=== PATIENT | male | born 1960 | race Caucasian/White ===

== ENCOUNTER 2022-05-01 17:04 | Emergency (ER) | payer MEDICARE, MEDICAID ==
[2022-05-01 19:13] LABS: ESTIMATED GFR 45 mL/min (>60)
== END 2022-05-01 20:30 | disposition home or self-care (01) ==
LOC: JD.ED 17:04
DX: R53.1 Weakness (principal); I10 Essential (primary) hypertension
CPT/HCPCS: 36415; 70450; 70450-26; 73502-26-RT; 73502-RT; 80053; 83605; 85025; 99285

== ENCOUNTER 2024-05-23 19:30 | Inpatient (IN) | payer MEDICARE, MEDICAID ==
[2024-05-23] MEDS ORDERED: Sodium Chloride 0.9% 10 ML Syringe FLUSH PRN (19:51)
[2024-05-23 20:37] LABS: BASOPHILS PERCENT AUTO 0.2 % (0.0-1.0); EOSINOPHILS PERCENT AUTO 0.1 % (0.0-6.0); HEMATOCRIT 34.7 % (42.0-52.0); HEMOGLOBIN 11.7 gm/dl (14.0-18.0); IMMATURE GRAN ABSOLUTE AUTO 0.07 K/mm3 (0.00-0.05); IMMATURE GRAN PERCENT AUTO 0.7 % (0.0-0.4); LYMPHOCYTES ABSOLUTE AUTO 1.3 K/mm3 (1.0-4.8); LYMPHOCYTES PERCENT AUTO 12.6 % (24.0-44.0); MEAN CORPUSCULAR HEMOGLOBIN 30.7 pg (28.0-32.0); MEAN CORPUSCULAR HGB CONC 33.7 g/dl (32.0-36.0); MEAN CORPUSCULAR VOLUME 91.1 fl (83.0-99.0); MEAN PLATELET VOLUME 9.3 fl (9.4-12.4); NEUTROPHILS ABSOLUTE AUTO 7.8 K/mm3 (1.8-7.7); NEUTROPHILS PERCENT AUTO 76.4 % (41.0-71.0); PLATELET COUNT,PLT 211 K/mm3 (150-400); RED BLOOD CELL COUNT 3.81 M/mm3 (4.52-5.90); WHITE BLOOD CELL COUNT,WBC 10.26 K/mm3 (3.9-11.3)
[2024-05-23 20:51] LABS: INR 1.17; PROTHROMBIN TIME 12.3 SECONDS (9.7-12.0)
[2024-05-23 20:52] LABS: PTT,PARTIAL THROMBOPLSTIN TIME 30.2 SECONDS (21.7-31.4)
[2024-05-23 20:57] LABS: LACTIC ACID 1.7 mmol/L (0.4-2.0)
[2024-05-23 21:04] LABS: A/G RATIO 0.8 (1-2); ALANINE AMINOTRANSFERASE,ALT 16 U/L (16-63); ALBUMIN 3.2 g/dl (3.4-5.0); ALKALINE PHOSPHATASE 77 U/L (46-116); ANION GAP 10.9 (5-15); ASPARTATE AMNIOTRANSFERASE,AST 23 U/L (15-37); BILIRUBIN TOTAL 0.5 mg/dL (0.2-1.0); BLOOD UREA NITROGEN,BUN 22 mg/dL (7-18); BUN/CREATININE RATIO 12.2 (14-18); CALCIUM 8.5 mg/dL (8.5-10.1); CARBON DIOXIDE,CO2 30 mEq/L (21-32); CHLORIDE,CL 97 mEq/L (98-107); CREATININE 1.8 mg/dL (0.7-1.3); ESTIMATED GFR 41 mL/min (>60); GLUCOSE RANDOM 123 mg/dL (70-99); MAGNESIUM 1.9 mg/dL (1.8-2.4); POTASSIUM,K 3.9 mEq/L (3.5-5.1); SODIUM,NA 134 mEq/L (136-145); TROPONIN I HIGH SENSITIVITY 21 pg/mL (<=76)
[2024-05-23] MEDS: Albuterol/Ipratropium 3.0-0.5 MG/3 ML Neb Soln NEB ONE (21:08)
[2024-05-23 21:10] LABS: APPEARANCE,URINE CLEAR (Clear); BILIRUBIN,URINE NEGATIVE (Negative); COLOR,URINE YELLOW (Yellow); GLUCOSE,URINE NEGATIVE (Negative); KETONES,URINE NEGATIVE (Negative); LEUKOCYTE ESTERASE,URINE TRACE (Negative); NITRITE,URINE NEGATIVE (Negative); OCCULT BLOOD,URINE NEGATIVE (Negative); PROTEIN,URINE TRACE (Negative); UROBILINOGEN,URINE 0.2 (0.2-1.0)
[2024-05-23 22:16] LABS: CORONAVIRUS COVID-19 NAA NEGATIVE (NEGATIVE); INFLUENZA A NAA NEGATIVE (NEGATIVE); RESPIRATORY SYNCYTIAL VIR NAA NEGATIVE (NEGATIVE)
[2024-05-23 23:55] LABS: BACTERIA,URINE OCCASIONAL /hpf (FEW); EPITHELIAL CELLS,URINE 0-5 /hpf (0-5); MUCUS,URINE FEW /hpf (FEW); RBC,URINE 0-5 /hpf (0-5); WBC,URINE 0-5 /hpf (0-5)
[2024-05-24] MEDS ORDERED: Piperacillin/Tazobactam 4.5 GM in Sodium Chloride 0.9% 100 ML IV ONE (01:13)
[2024-05-24] MEDS: Piperacillin/Tazobactam 4.5 GM in Sodium Chloride 0.9% 100 ML IV ONE (01:44)
[2024-05-24] MEDS: Sodium Chloride 0.9% 500 ML IV ONE (01:44)
[2024-05-24] MEDS ORDERED: Polyethylene Glycol 3350 Powder 17 GM Packet PO PRN (08:04)
[2024-05-24] MEDS ORDERED: Ondansetron 4 MG Tab.DIS PO PRN (08:04)
[2024-05-24] MEDS ORDERED: Enoxaparin 40 MG/0.4 ML Syringe SUBCUT SCH (09:00)
[2024-05-24] MEDS: Enoxaparin 40 MG/0.4 ML Syringe SUBCUT SCH (13:55)
[2024-05-24] MEDS: busPIRone 15 MG Tab PO SCH (15:06)
[2024-05-24] MEDS: Sodium Chloride 0.9% 1,000 ML IV ONE (15:25)
[2024-05-24] MEDS: Acetaminophen 325 MG Tab PO PRN (15:48)
[2024-05-24] MEDS: Cefepime 2 GM in Sodium Chloride 0.9% 50 ML IV SCH (17:39)
[2024-05-24] MEDS: Doxycycline 100 MG in Sodium Chloride 0.9% 100 ML IV SCH (18:16)
[2024-05-24] MEDS: risperiDONE 1 MG Tab PO SCH (20:00)
[2024-05-24] MEDS ORDERED: Doxycycline 100 MG in Sodium Chloride 0.9% 100 ML IV SCH (21:00)
[2024-05-25 04:42] LABS: BASOPHILS PERCENT AUTO 0.4 % (0.0-1.0); EOSINOPHILS PERCENT AUTO 0.5 % (0.0-6.0); HEMOGLOBIN 11.7 gm/dl (14.0-18.0); IMMATURE GRAN ABSOLUTE AUTO 0.08 K/mm3 (0.00-0.05); IMMATURE GRAN PERCENT AUTO 0.9 % (0.0-0.4); LYMPHOCYTES ABSOLUTE AUTO 1.5 K/mm3 (1.0-4.8); LYMPHOCYTES PERCENT AUTO 17.3 % (24.0-44.0); MEAN CORPUSCULAR HEMOGLOBIN 30.5 pg (28.0-32.0); MEAN CORPUSCULAR HGB CONC 33.4 g/dl (32.0-36.0); MEAN CORPUSCULAR VOLUME 91.4 fl (83.0-99.0); MEAN PLATELET VOLUME 9.7 fl (9.4-12.4); MONOCYTES ABSOLUTE AUTO 0.6 K/mm3 (0.0-0.8); MONOCYTES PERCENT AUTO 7.5 % (0.0-8.0); NEUTROPHILS ABSOLUTE AUTO 6.2 K/mm3 (1.8-7.7); NEUTROPHILS PERCENT AUTO 73.4 % (41.0-71.0); PLATELET COUNT,PLT 186 K/mm3 (150-400); RED BLOOD CELL COUNT 3.83 M/mm3 (4.52-5.90); WHITE BLOOD CELL COUNT,WBC 8.44 K/mm3 (3.9-11.3)
[2024-05-25 05:13] LABS: A/G RATIO 0.6 (1-2); ALBUMIN 2.4 g/dl (3.4-5.0); ANION GAP 9.1 (5-15); BILIRUBIN TOTAL 0.4 mg/dL (0.2-1.0); BUN/CREATININE RATIO 11.8 (14-18); CREATININE 1.1 mg/dL (0.7-1.3); EST CRCL DRUG DOSING (CG) 66.95 mL/min; POTASSIUM,K 4.1 mEq/L (3.5-5.1); PROTEIN TOTAL,TP 6.3 g/dl (6.4-8.2)
[2024-05-25] MEDS: FLUoxetine 20 MG Cap PO SCH (08:01)
[2024-05-25] MEDS: Bumetanide 1 MG Tab PO SCH (08:33)
[2024-05-25] MEDS: Lisinopril 5 MG Tab PO SCH (08:33)
[2024-05-25] MEDS: Albuterol/Ipratropium 3.0-0.5 MG/3 ML Neb Soln NEB ONE (10:35)
[2024-05-25] MEDS: guaiFENesin 600 MG Tab.ER PO SCH (13:39)
[2024-05-25] MEDS: QUETIAPINE FUMARATE 400 MG PO SCH (21:53)
[2024-05-26 05:34] LABS: A/G RATIO 0.5 (1-2); ALBUMIN 2.3 g/dl (3.4-5.0); ANION GAP 12.5 (5-15); BILIRUBIN TOTAL 0.4 mg/dL (0.2-1.0); BUN/CREATININE RATIO 14.6 (14-18); CREATININE 1.3 mg/dL (0.7-1.3); EST CRCL DRUG DOSING (CG) 56.65 mL/min; POTASSIUM,K 3.5 mEq/L (3.5-5.1); PROTEIN TOTAL,TP 6.8 g/dl (6.4-8.2)
[2024-05-26 05:38] LABS: BASOPHILS PERCENT AUTO 0.3 % (0.0-1.0); EOSINOPHILS ABSOLUTE AUTO 0.1 K/mm3 (0.0-0.4); EOSINOPHILS PERCENT AUTO 1.2 % (0.0-6.0); HEMATOCRIT 38.6 % (42.0-52.0); LYMPHOCYTES ABSOLUTE AUTO 1.4 K/mm3 (1.0-4.8); LYMPHOCYTES PERCENT AUTO 13.5 % (24.0-44.0); MEAN CORPUSCULAR HEMOGLOBIN 31.2 pg (28.0-32.0); MEAN CORPUSCULAR HGB CONC 33.7 g/dl (32.0-36.0); MEAN CORPUSCULAR VOLUME 92.6 fl (83.0-99.0); MEAN PLATELET VOLUME 9.9 fl (9.4-12.4); MONOCYTES ABSOLUTE AUTO 0.8 K/mm3 (0.0-0.8); MONOCYTES PERCENT AUTO 8.2 % (0.0-8.0); NEUTROPHILS ABSOLUTE AUTO 7.6 K/mm3 (1.8-7.7); NEUTROPHILS PERCENT AUTO 75.8 % (41.0-71.0); PLATELET COUNT,PLT 229 K/mm3 (150-400); RED BLOOD CELL COUNT 4.17 M/mm3 (4.52-5.90); WHITE BLOOD CELL COUNT,WBC 9.97 K/mm3 (3.9-11.3)
[2024-05-26] MEDS: Doxycycline Monohydrate 100 MG Cap PO SCH (18:33)
[2024-05-27 04:27] LABS: BASOPHILS PERCENT AUTO 0.3 % (0.0-1.0); EOSINOPHILS ABSOLUTE AUTO 0.3 K/mm3 (0.0-0.4); EOSINOPHILS PERCENT AUTO 2.9 % (0.0-6.0); HEMOGLOBIN 12.1 gm/dl (14.0-18.0); IMMATURE GRAN ABSOLUTE AUTO 0.12 K/mm3 (0.00-0.05); IMMATURE GRAN PERCENT AUTO 1.4 % (0.0-0.4); LYMPHOCYTES ABSOLUTE AUTO 1.7 K/mm3 (1.0-4.8); LYMPHOCYTES PERCENT AUTO 19.2 % (24.0-44.0); MEAN CORPUSCULAR HEMOGLOBIN 30.6 pg (28.0-32.0); MEAN CORPUSCULAR HGB CONC 33.6 g/dl (32.0-36.0); MEAN CORPUSCULAR VOLUME 90.9 fl (83.0-99.0); MEAN PLATELET VOLUME 9.3 fl (9.4-12.4); MONOCYTES ABSOLUTE AUTO 0.7 K/mm3 (0.0-0.8); MONOCYTES PERCENT AUTO 7.9 % (0.0-8.0); NEUTROPHILS PERCENT AUTO 68.3 % (41.0-71.0); PLATELET COUNT,PLT 220 K/mm3 (150-400); RED BLOOD CELL COUNT 3.96 M/mm3 (4.52-5.90); WHITE BLOOD CELL COUNT,WBC 8.82 K/mm3 (3.9-11.3)
[2024-05-27 04:50] LABS: A/G RATIO 0.5 (1-2); ALBUMIN 2.3 g/dl (3.4-5.0); ANION GAP 11.4 (5-15); BILIRUBIN TOTAL 0.4 mg/dL (0.2-1.0); BUN/CREATININE RATIO 18.3 (14-18); C-REACTIVE PROTEIN 13.87 mg/dL (<0.30); CALCIUM 8.1 mg/dL (8.5-10.1); CREATININE 1.2 mg/dL (0.7-1.3); EST CRCL DRUG DOSING (CG) 61.37 mL/min; POTASSIUM,K 3.4 mEq/L (3.5-5.1); PROTEIN TOTAL,TP 6.6 g/dl (6.4-8.2)
[2024-05-27] MEDS: Bumetanide 1 MG Tab PO SCH (05:08)
[2024-05-27] MEDS ORDERED: Sodium Chloride 0.9% 10 ML Syringe FLUSH PRN (08:00)
[2024-05-27] MEDS: Iopamidol 755 Mg/ML 100 ML Bottle IVPUSH ONE (08:20)
[2024-05-27] MEDS: Sodium Chloride 0.9% 100 ML IV SCH (08:20)
[2024-05-27] MEDS: Levofloxacin/Dextrose 5%-Water 750 MG in Premix Bag 1 BAG IV SCH (15:32)
[2024-05-28 05:55] LABS: HEMATOCRIT 34.8 % (42.0-52.0); HEMOGLOBIN 11.7 gm/dl (14.0-18.0); MEAN CORPUSCULAR HEMOGLOBIN 30.6 pg (28.0-32.0); MEAN CORPUSCULAR HGB CONC 33.6 g/dl (32.0-36.0); MEAN CORPUSCULAR VOLUME 91.1 fl (83.0-99.0); MEAN PLATELET VOLUME 9.3 fl (9.4-12.4); PLATELET COUNT,PLT 262 K/mm3 (150-400); RED BLOOD CELL COUNT 3.82 M/mm3 (4.52-5.90); WHITE BLOOD CELL COUNT,WBC 9.39 K/mm3 (3.9-11.3)
[2024-05-28] MEDS: Albuterol/Ipratropium 3.0-0.5 MG/3 ML Neb Soln NEB PRN (06:19)
[2024-05-28 06:24] LABS: A/G RATIO 0.5 (1-2); ALBUMIN 2.1 g/dl (3.4-5.0); ANION GAP 6.4 (5-15); BILIRUBIN TOTAL 0.4 mg/dL (0.2-1.0); BUN/CREATININE RATIO 18.3 (14-18); C-REACTIVE PROTEIN 9.65 mg/dL (<0.30); CREATININE 1.2 mg/dL (0.7-1.3); EST CRCL DRUG DOSING (CG) 61.37 mL/min; POTASSIUM,K 3.4 mEq/L (3.5-5.1); PROTEIN TOTAL,TP 6.4 g/dl (6.4-8.2)
[2024-05-28] MEDS: Potassium Chloride 20 MEQ Tab.ER PO ONE (09:21)
[2024-05-29 05:59] LABS: HEMATOCRIT 37.2 % (42.0-52.0); HEMOGLOBIN 12.4 gm/dl (14.0-18.0); MEAN CORPUSCULAR HEMOGLOBIN 30.8 pg (28.0-32.0); MEAN CORPUSCULAR HGB CONC 33.3 g/dl (32.0-36.0); MEAN CORPUSCULAR VOLUME 92.3 fl (83.0-99.0); MEAN PLATELET VOLUME 9.2 fl (9.4-12.4); PLATELET COUNT,PLT 274 K/mm3 (150-400); RED BLOOD CELL COUNT 4.03 M/mm3 (4.52-5.90); WHITE BLOOD CELL COUNT,WBC 10.69 K/mm3 (3.9-11.3)
[2024-05-29 06:31] LABS: A/G RATIO 0.5 (1-2); ALBUMIN 2.3 g/dl (3.4-5.0); ANION GAP 9.7 (5-15); BILIRUBIN TOTAL 0.4 mg/dL (0.2-1.0); BUN/CREATININE RATIO 19.2 (14-18); CALCIUM 8.6 mg/dL (8.5-10.1); CREATININE 1.2 mg/dL (0.7-1.3); EST CRCL DRUG DOSING (CG) 61.37 mL/min; POTASSIUM,K 3.7 mEq/L (3.5-5.1)
[2024-05-31 04:29] LABS: HEMOGLOBIN 12.2 gm/dl (14.0-18.0); MEAN CORPUSCULAR HEMOGLOBIN 30.3 pg (28.0-32.0); MEAN CORPUSCULAR VOLUME 91.8 fl (83.0-99.0); MEAN PLATELET VOLUME 9.5 fl (9.4-12.4); PLATELET COUNT,PLT 290 K/mm3 (150-400); RED BLOOD CELL COUNT 4.03 M/mm3 (4.52-5.90); WHITE BLOOD CELL COUNT,WBC 8.03 K/mm3 (3.9-11.3)
[2024-05-31 05:08] LABS: A/G RATIO 0.5 (1-2); ALBUMIN 2.3 g/dl (3.4-5.0); ANION GAP 7.2 (5-15); BILIRUBIN TOTAL 0.5 mg/dL (0.2-1.0); CALCIUM 8.7 mg/dL (8.5-10.1); CREATININE 1.2 mg/dL (0.7-1.3); EST CRCL DRUG DOSING (CG) 61.37 mL/min; POTASSIUM,K 3.2 mEq/L (3.5-5.1); PROTEIN TOTAL,TP 6.9 g/dl (6.4-8.2)
[2024-05-31] MEDS: Potassium Chloride 20 MEQ Tab.ER PO ONE (08:07)
[2024-06-01 05:25] LABS: BUN/CREATININE RATIO 19.3 (14-18); CALCIUM 9.4 mg/dL (8.5-10.1); CREATININE 1.4 mg/dL (0.7-1.3); EST CRCL DRUG DOSING (CG) 52.6 mL/min
[2024-06-01 05:42] LABS: ANION GAP 11.4 (5-15)
[2024-06-01 05:58] LABS: POTASSIUM,K 4.4 mEq/L (3.5-5.1)
== END 2024-06-01 13:00 | DRG 193 ==
LOC: JD.ED 19:30 → JD.MS 05-24 08:04
PROVIDERS: ADMIT Family Medicine; ATTEND Internal Medicine
DX: J18.9 Pneumonia, unspecified organism (principal); I50.33 Acute on chronic diastolic (congestive) heart failure; J96.01 Acute respiratory failure with hypoxia; I13.0 Hypertensive heart and chronic kidney disease with heart failure and stage 1 through stage 4 chronic kidney disease, or unspecified chronic kidney disease; N17.9 Acute kidney failure, unspecified; Z66 Do not resuscitate; F20.9 Schizophrenia, unspecified; R09.02 Hypoxemia; R79.89 Other specified abnormal findings of blood chemistry; F41.9 Anxiety disorder, unspecified; I95.9 Hypotension, unspecified; N18.2 Chronic kidney disease, stage 2 (mild); E86.0 Dehydration; R26.89 Other abnormalities of gait and mobility; Z79.51 Long term (current) use of inhaled steroids; Z87.891 Personal history of nicotine dependence; Z79.899 Other long term (current) drug therapy; W19.XXXA Unspecified fall, initial encounter
CPT/HCPCS: 0241U; 36415; 70450; 71045; 71275; 72192; 80048; 80053; 81001; 83605; 83735; 83880; 84484; 85025; 85027; 85379; 85610; 85730; 86140; 87040; 87070; 87086; 87205; 87641; 92610; 93005; 93306; 94640; 94668; 94760; 94761; 96361; 96365; 97110; 97116; 97161; 99285; 93010; 99222; 99232; A9270-GY; J0692; J1650; J1956; J2543; J3490; J7030; J7620-GY; Q9967